=== PATIENT | male | born 1935 | race Caucasian/White ===

== ENCOUNTER 2023-04-27 19:41 | Emergency (ER) | payer OTHER ==
[~2023-04-27] VITALS: Ht 167.6 cm; Wt 68.0 kg
[2023-04-27 19:50] VITALS: BP 122/78; PULSE 122; RESP 38; TEMP 99.2; O2SAT 97
[2023-04-27 19:55] VITALS: TEMP 101.8
[2023-04-27] MEDS: ALBUTEROL SULFATE/IPRATROPIU 3 ML SOL IH ONE (20:10)
[2023-04-27] MEDS ORDERED: cefTRIAXone 2,000 MG VIAL ONE ×2 (20:18)
[2023-04-27] MEDS: methylPREDNISolone SS 125 MG/2 ML VIAL IVP ONE (20:22)
[2023-04-27 20:29] LABS: BASOPHILS % (AUTO) 0.2 % (0.0-2.0); HEMATOCRIT 40.7 % (36-52); HEMOGLOBIN 13.3 g/dL (12.0-18.0); LYMPHOCYTES # (AUTO) 0.5 K/uL (2.0-11.5); LYMPHOCYTES % (AUTO) 3.4 % (20.5-51.1); MEAN CORPUSCULAR HEMOGLOBIN 31 pg (27-31); MEAN CORPUSCULAR HGB CONC 33 g/dL (33-37); MEAN CORPUSCULAR VOLUME 95.4 fL (80-94); MONOCYTES # (AUTO) 1.1 K/uL (0.8-1.0); MONOCYTES % (AUTO) 7.3 % (1.7-9.3); NEUTROPHILS # (AUTO) 13.7 K/uL (1.8-7.7); NEUTROPHILS % (AUTO) 89.1 % (42.2-75.2); PLATELET COUNT (AUTO) 298 K/uL (140-450); RED BLOOD CELL COUNT(AUTO) 4.26 MIL/uL (4.20-6.10); RED CELL DISTRIBUTION WIDTH 14.1 % (11.6-13.7); WHITE BLOOD COUNT (AUTO) 15.4 K/uL (4.8-10.8)
[2023-04-27] MEDS: cefTRIAXone 2,000 MG in DEXTROSE 5% 100 ML IV ONE (20:29)
[2023-04-27 20:44] LABS: BLOOD GAS BASE EXCESS -2.3 mmol/L (-2.0-2.0); BLOOD GAS HCO3 22.6 mmol/L (22-26); BLOOD GAS PCO2 39.6 mmHg (35-45); BLOOD GAS PH 7.375 (7.35-7.45); BLOOD GAS PO2 63.9 mmHg (75-100)
[2023-04-27 20:45] LABS: BLOOD GAS O2 SAT% 90.2 % (92.0-98.5)
[2023-04-27 20:56] LABS: ANION GAP 19.9 (8-16); CALCIUM 10.4 mg/dL (8.5-10.1); CARBON DIOXIDE 25.2 mmol/L (21-32); CHLORIDE 116 mmol/L (98-107); CREATININE 2.5 mg/dL (0.6-1.3); GLUCOSE 155 mg/dL (74-106); POTASSIUM 5.1 mmol/L (3.5-5.1)
[2023-04-27 21:04] LABS: LACTIC ACID 1.9 mmol/L (0.4-2.0)
[2023-04-27 21:13] LABS: UREA NITROGEN, BLOOD 115 mg/dL (7-18)
[2023-04-27 21:15] LABS: SODIUM SERUM 156 mmol/L (136-145)
[2023-04-27] MEDS ORDERED: AZITHROMYCIN 500 MG INJ VIAL IV ONE (21:31)
[2023-04-27 21:39] LABS: ALBUMIN 2.4 g/dL (3.4-5.0); BILIRUBIN,DIRECT 0.3 mg/dL (0.0-0.3); TOTAL PROTEIN, SERUM 8.6 g/dL (6.4-8.2)
[2023-04-27 21:44] LABS: INR 1.2 (0.8-1.2); PARTIAL THROMBOPLASTIN TIME 27.4 secs (22-35.6); PROTHROMBIN TIME 12.5 secs (10.8-13.4)
[2023-04-27] MEDS: AZITHROMYCIN 500 MG in DEXTROSE 5% 250 ML IV ONE (21:45)
[2023-04-27] MEDS: ACETAMINOPHEN 650 MG SUPP RC ONE (21:49)
[2023-04-27 22:51] VITALS: BP 139/70; PULSE 96; RESP 32; O2SAT 97
[2023-04-27] MEDS: NACL 0.9% 500 ML IV ONE (22:53)
[2023-04-27] MEDS: LEVALBUTEROL 1.25 MG/0.5 ML NEBU INH ONE (22:53)
== END 2023-04-27 23:18 | disposition short-term general hospital (02) ==
LOC: MED 19:41
DX: S06.5XAA Traumatic subdural hemorrhage with loss of consciousness status unknown, initial encounter (principal); J96.90 Respiratory failure, unspecified, unspecified whether with hypoxia or hypercapnia; N17.9 Acute kidney failure, unspecified; E87.0 Hyperosmolality and hypernatremia; X58.XXXA Exposure to other specified factors, initial encounter; Y93.89 Activity, other specified; Y92.89 Other specified places as the place of occurrence of the external cause; Y99.8 Other external cause status
CPT/HCPCS: 36415; 70450; 71045; 80048; 80076; 83605; 83880; 84484; 85025; 85610; 85730; 86886; 86900; 86901; 87040; 93005; 96365; 96367; 96375; 99291; J0456; J0696; J2930; J7612; Q0092